=== PATIENT | male | born 1940 | race Two or more races ===

== ENCOUNTER 2023-07-18 19:21 | Emergency (ER) | payer OTHER ==
[~2023-07-18] VITALS: Ht 177.8 cm; Wt 68.2 kg
[2023-07-18 19:29] VITALS: PULSE 122; RESP 15; O2SAT 86
[2023-07-18 19:38] VITALS: BP 95/70; PULSE 109; RESP 18; O2SAT 92
[2023-07-18] MEDS ORDERED: EPINEPHrine HCL 250 ML IV ONE (19:47)
[2023-07-18] MEDS ORDERED: EPINEPHrine HCL 250 ML IV SCH (19:50)
[2023-07-18] MEDS ORDERED: NOREPINEPHRINE 8 MG/250ML KIT 250 ML IV ONE (19:52)
[2023-07-18] MEDS ORDERED: NOREPINEPHRINE 8 MG/250ML KIT 250 ML IV SCH (20:00)
[2023-07-18] MEDS ORDERED: ETOMIDATE (2MG/ML) 20ML VIAL IV ONE ×2 (20:15→20:16)
[2023-07-18 20:22] LABS: Base Excess -27.4 mmol/L (-2.0-2.0)
[2023-07-18] MEDS ORDERED: MIDAZOLAM DRIP 50 mg/50mL 50 ML IV ONE (20:23)
[2023-07-18 20:30] LABS: Basophils # (auto) 0.1 10 ^3/uL (0-0.2); Basophils % (auto) 0.9 % (0.0-2.0); Eosinophils # (auto) 0 10 ^3/uL (0-0.8); Eosinophils % (auto) 0.1 % (0.0-7.0); Hematocrit 30.4 % (41.0-53.0); Hemoglobin 8.3 g/dL (13.5-17.5); Lymphocytes # (auto) 3.8 10 ^3/uL (0.4-5.4); Lymphocytes % (auto) 40.7 % (10.0-50.0); Mean Corpuscular Hemoglobin 26.1 pg (28.0-32.0); Mean Corpuscular Hgb Conc. 27.4 g/dL (32.0-36.0); Mean Corpuscular Volume 95.4 fL (80.0-100.0); Monocytes # (auto) 0.2 10 ^3/uL (0-1.3); Monocytes % (auto) 2.1 % (0.0-12.0); Neutrophils # (auto) 5.2 10 ^3/uL (1.6-8.6); Neutrophils % (auto) 56.2 % (37.0-80.0); Nucleated Red Blood Cells % 0.8 %; Red Blood Cells 3.18 10^6/uL (4.5-5.90); Red Cell Distribution Width 20.4 % (11.8-14.3); White Blood Cell 9.3 10^3/uL (4.4-10.8)
[2023-07-18] MEDS ORDERED: MIDAZOLAM DRIP 50 mg/50mL 50 ML IV SCH (20:30)
[2023-07-18 20:33] LABS: INR 1.5 (0.9-1.15); Partial Thromboplastin Time 57.6 SEC (24.5-34.5); Prothrombin Time 15.3 sec (9.3-11.8)
[2023-07-18 20:38] LABS: Alanine Aminotransferase 193 U/L (7-40); Albumin 2.4 g/dL (3.2-4.8); Alkaline Phosphatase 102 U/L (46-116); Anion Gap 27 (5-15); Aspartate Aminotransferase 248 U/L (13-40); BUN/Creatinine Ratio 11.5 (10.0-20.0); Bilirubin, Total 0.4 mg/dL (0.2-1.0); Blood Urea Nitrogen 41 mg/dL (9-23); Calcium 8.9 mg/dL (8.7-10.4); Carbon Dioxide 11 mmol/L (20-30); Chloride 110 mmol/L (98-107); Glucose 92 mg/dL (74-106); Magnesium 1.7 mg/dL (1.6-2.6); Potassium 4.5 mmol/L (3.5-5.1); Sodium 148 mmol/L (136-145); Total Protein 4.8 g/dL (5.7-8.2)
[2023-07-18] MEDS ORDERED: SODIUM BICARBONATE 8.4 % INJ 50ML VIAL IV ONE (20:45)
[2023-07-18 21:35] VITALS: BP 87/36; PULSE 82; RESP 20; O2SAT 99
[2023-07-18] MEDS ORDERED: PHENYLEPHRINE IV 250 ML IV ONE (22:00)
[2023-07-18 22:08] VITALS: BP 87/36; PULSE 82; RESP 85; O2SAT 98
[2023-07-18 23:46] VITALS: BP 108/81; PULSE 71; RESP 20; O2SAT 95
[2023-07-19] VITALS: PULSE 0
== END 2023-07-19 02:45 ==
LOC: ER 19:26
DX: I46.9 Cardiac arrest, cause unspecified (principal); R07.89 Other chest pain; Z88.8 Allergy status to other drugs, medicaments and biological substances
CPT/HCPCS: 31500; 36415; 36556; 36600; 71045; 80053; 82805; 83735; 84484; 85025; 85610; 85730; 87070; 87077; 87186; 87205; 93005; 96365; 96366; 99291; J0171; J2250; J2370